=== PATIENT | male | born 1955 | race Two or more races ===

== ENCOUNTER 2021-12-21 08:59 | Outpatient (CLI) | payer OTHER ==
[~2021-12-21] VITALS: Ht 157.5 cm; Wt 78.6 kg
[2021-12-21] VITALS (16 sets, daily range): BP systolic 119–157; BP diastolic 72–97
[~2021-12-21 08:59] MED LIST: ASPI325T11 PO; ATOR40TA59 PO; CARV6.2511 PO; CLOP75TA PO; LISI5TAB15 PO; NITR0.4T24 SL; SIMV10TA15 PO
[2021-12-21 09:22] LABS: HEMATOCRIT 47.2 % (39.0-53.0); HEMOGLOBIN 15.9 g/dL (13.0-17.5); RED BLOOD COUNT 5.11 x10^6/uL (4.30-5.70); RED CELL DISTRIBUTION WIDTH 13.5 % (11.5-14.5); WHITE BLOOD COUNT 4.9 x10^3/uL (4.0-11.0)
[2021-12-21] MEDS ORDERED: METF500T16 PO (09:23)
[2021-12-21] MEDS ORDERED: TIZA-75 PO (09:23)
[2021-12-21] MEDS ORDERED: ASPI-886 PO (09:23)
[2021-12-21] MEDS ORDERED: GABA-585 PO (09:23)
[2021-12-21] MEDS ORDERED: LISI20TA18 PO (09:23)
[2021-12-21] MEDS ORDERED: LIPITOR80 MG PO (09:23)
[2021-12-21 09:31] LABS: PROTHROMBIN TIME PATIENT 12.7 SEC (11.7-14.0)
[2021-12-21] MEDS ORDERED: LIDOCAINE 1% PF 2 ML VIAL. ONE (09:34)
[2021-12-21] MEDS ORDERED: IODIXANOL 320 MG/ML 100 ML VIAL. ONE ×2 (09:34→11:09)
[2021-12-21 09:37] LABS: CALCIUM 8.4 mg/dL (8.5-10.1); CREATININE 0.9 mg/dL (0.7-1.3); GFR 84.2; POTASSIUM 4.5 mmol/L (3.5-5.1)
[2021-12-21] MEDS ORDERED: fentaNYL PF VIAL 100 MCG/2 ML VIAL ONE (10:29)
[2021-12-21] MEDS ORDERED: HEPARIN for IV BOLUS 10,000 UNIT/10 ML VIAL. ONE (10:30)
[2021-12-21] MEDS ORDERED: NITROGLYCERIN 200 MCG/2 ML SYRINGE FOR CATH/VASC LAB. ONE (10:30)
[2021-12-21] MEDS ORDERED: VERAPAMIL 5 MG/2 ML VIAL. ONE (10:30)
[2021-12-21] MEDS ORDERED: MIDAZOLAM HCL/PF 2 MG/2 ML VIAL. ONE (10:30)
[2021-12-21] MEDS ORDERED: BIVALIRUDIN 250 MG VIAL. IV ONE ×2 (10:50→11:00)
[2021-12-21] MEDS ORDERED: fentaNYL PF VIAL 100 MCG/2 ML VIAL IV ONE (11:00)
[2021-12-21] MEDS ORDERED: HEPARIN for IV BOLUS 10,000 UNIT/10 ML VIAL. IV ONE (11:00)
[2021-12-21] MEDS ORDERED: LIDOCAINE 1% PF 2 ML VIAL. INJ ONE (11:00)
[2021-12-21] MEDS ORDERED: CONTRAST GIVEN. MC PRN (11:00)
[2021-12-21] MEDS ORDERED: IODIXANOL 320 MG/ML 100 ML VIAL. IART ONE (11:00)
[2021-12-21] MEDS ORDERED: VERAPAMIL 5 MG/2 ML VIAL. IART ONE (11:00)
[2021-12-21] MEDS ORDERED: NITROGLYCERIN 200 MCG/2 ML SYRINGE FOR CATH/VASC LAB. IART ONE (11:00)
[2021-12-21] MEDS ORDERED: MIDAZOLAM HCL/PF 2 MG/2 ML VIAL. IV ONE (11:00)
[2021-12-21] MEDS ORDERED: HEPARIN for IV BOLUS 10,000 UNIT/10 ML VIAL. IART ONE (11:00)
[2021-12-21] MEDS ORDERED: CLOPIDOGREL BISULFATE 75 MG TABLET ONE (11:40)
[2021-12-21] MEDS ORDERED: ASPIRIN 325 MG TABLET ONE (11:41)
[2021-12-21] MEDS ORDERED: ASPIRIN 325 MG TABLET PO ONE (11:45)
[2021-12-21] MEDS ORDERED: CLOPIDOGREL BISULFATE 75 MG TABLET PO ONE (11:45)
--- NOTE | 2021-12-21 11:59 | PDOC ---
MODERATE SEDATION ASSESSMENT RISKS/ALTERNATIVES Risks/Alternatives Risks and alternatives of this type of sedation and procedure discussed with: RISK/ALTERNATIVES: Patient H & P ON CHART H & P H & P on chart and reviewed for co-morbid conditions and appropriate labs. H&P ON CHART: Yes STATUS PREG STATUS ASSESSED: N/A MEDS/ALLERGIES REVIEWED Meds/Allergies Reviewed Medications and Allergies including time and route of recently administered narcotics and sedatives. MEDS/ALLERGIES REVIEWED: Yes ASA RATING ASA RATING: III AIRWAY ASSESSMENT Airway Assessment Airway patency, oral function limitations, presence of caps, crowns, dentures, partials, and ability to extend neck assessed. AIRWAY ASSESSMENT: Yes MALLAMPATI SCORE MALLAMPATI SCORE: II PRE-SEDATION ASSESSMENT PRE-SEDATION ASSESSMENT: Yes TREMAYNE FOSTER MD Dec 21, 2021 11:59
[2021-12-21] MEDS ORDERED: IV 1/2 NORMAL SALINE 1,000 ML IV SCH (12:15)
--- NOTE | 2021-12-21 13:10 | CARD ---
MR#: [id number] Date of Study: 12/21/2021 Ordering Physician: TREMAYNE ESTRELLA, Referring Physician: TREMAYNE ESTRELLA, Tech: CHELSIE PAYNE APPROVED REPORT Technologist: CHELSIE PAYNE Nurse: Mila Dyson RN Procedure(s) performed: 1. Left heart catheterization, selective coronary angiography via right trans radial approach 2. Instantaneous wave free ratio (IFR) measurement of left circumflex artery and right coronary arter y stenoses. 3. Successful PCI/drug-eluting stent placement to the posterior descending branch of right coronary a rtery. MODERATE SEDATION TIME: 78 MINUTES FLUORO TIME: 28.6 MIN DOSE: [id number] CONTRAST: 140CC VISI INDICATION The indication(s) include : unstable angina . [facility] Clinical Frailty Scale [facility] Clinical Frailty Scale: Mildly Frail Heart Failure Heart Failure: No CASE TECHNIQUE IV conscious sedation was used throughout procedure with appropriate monitoring and was performed in the presence of a registered nurse who was an independent trained observer other than the physician p erforming the procedure. During this case, Fluoroscopy and low osmolar contrast were used for imaging . Specimen(s) Removed: No Estimated Blood loss: 15 cc's. PROCEDURE NARRATIVE After explaining the risks, benefits and alternative options, informed consent was obtained from chucho ent. Patient was brought to the cardiac Guidance Adviser and right wrist was prepped and draped in the usual fashion after confirming a positive modified Román's test. Arterial access was obtained in the righ t radial artery and a 6 German sheath was inserted. 6 German Ruben catheter was used to perform olu ective angiography of the left and right coronary arteries. LVEDP and transaortic gradients were ena ured. Since patient was noted to have angiographically borderline significant stenosis involving left circumflex and right coronary arteries, a decision was made to perform physiologic assessment using instantaneous wave free ratio (IFR). The left main coronary artery was engaged with a 6 German XB 3.5 guide catheter. The in-stent resteno sis in the mid segment of left circumflex artery was crossed with a BitInstantiwire pressure guidew david. iFR measurement was made the came back insignificant at 0.98. Subsequently, the right coronary a rtery was engaged with a 6 German JR4 guide catheter and the stenosis in the mid segment was crossed with the pressure guidewire. iFR measurement was made that was insignificant at 1.0. Hence no interve ntions were performed on these lesions. FINDINGS 1. Hemodynamics: Left ventricular end-diastolic pressure of 12 mmHg. No pullback gradient across th e aortic valve. 2. Coronary angiography: a. The left main coronary artery arose from the left sinus of Valsalva, gave rise to the left anteri or descending and left circumflex arteries and did not show any significant stenosis. b. The left anterior descending artery showed a widely patent stent in the mid segment. c. The left circumflex artery showed 50% in-stent restenosis in the midsegment. This was physiologic ally insignificant based on IFR measurement of 0.98. d. The right coronary artery was a large and dominant vessel arising from the right sinus of Valsalv a that showed 50% stenosis in the midsegment that was physiologically insignificant based on IFR ena urement of 1.0. The posterior descending branch showed 90% proximal segment stenosis. INTERVENTION The right coronary artery was engaged with a 6 German XB 3.5 guide catheter as stated above. The sten osis in the posterior descending branch was crossed with a 0.014 inch FoKo guidewire. This was predilated with a 2.0 x 12 mm Euphora balloon following which this was successfully treated with a 2.25 x 12 mm [employer] Promus Elite drug-eluting stent. Follow-up angiography showed resolu tion of the lesion to 0% with CHRISTIN-3 distal flow. Patient tolerated the procedure well. Hemostasis wa s achieved using TR band. There were no immediate complications. CHRISTIN Flow CHRISTIN Flow (Pre-Intervention): CHRISTIN-2 CHRISTIN Flow (Post-Intervention): CHRISTIN-3 Conclusion 1. Widely patent previously placed stent in the left anterior descending artery. 50% in-stent resteno sis in the mid segment of the left circumflex artery that was insignificant based on IFR measurement. The right coronary artery showed 50% stenosis in the midsegment there was insignificant based on IFR measurement. The posterior descending branch showed 90% proximal segment stenosis. 2. Successful PCI/drug-eluting stent placement to the posterior descending branch of right coronary a rtery. Recommendations 1. Aspirin 325 mg daily for 1 month followed by 81 mg daily 2. Plavix 75 mg daily 3. Cardiovascular risk factor modification Signed by : Tremayne Estrella, Electronically Approved : 12/21/2021 13:10:13
[2021-12-21] MEDS ORDERED: ASPI325T11 PO (13:22)
[2021-12-21] MEDS ORDERED: CLOP75TA PO (13:22)
--- NOTE | 2021-12-21 14:41 | CARD ---
MR#: [id number] Date of Study: 12/21/2021 Ordering Physician: TREMAYNE ESTRELLA, Referring Physician: Mic BAZAN: Agustin Ann [facility] APPROVED REPORT EXAM: Two-dimensional and M-mode echocardiogram with Doppler and color Doppler. Other Information Quality : FairHR: 53bpm Rhythm : NSR INDICATION Cardiac Disease: CAD 2D DIMENSIONS Left Atrium(2D)3.5 (1.6-4.0cm)IVSd0.9 (0.7-1.1cm) Aortic Root(2D)3.3 (2.0-3.7cm)LVDd4.5 (3.9-5.9cm) LVOT Diameter1.9 (1.8-2.4cm)PWd0.9 (0.7-1.1cm) LA Jkehry91 (18-58mL)LVDs2.8 (2.5-4.0cm) FS (%) 37.5 %SV62.1 ml LVEF(%)67.7 (>50%) Aortic Valve AoV Peak Andrez.141.6cm/sAoV VTI32.1cm AO Peak GR.8.0mmHgLVOT VTI 15.34cm AO Mean GR.4mmHg Mitral Valve MV E Aigzmcae56.7cm/sMV E Peak Gr.4mmHg MV DECEL [id number] A Loebgrkg55.6cm/s MV E Mean Gr.1mmHgE/A Ratio0.9 TDI Lateral E' P. V6.37cm/sMedial E' P. V4.38cm/s E/Lateral E'10.2E/Medial E'14.8 Tricuspid Valve TR P. Zyknaujv248ar/sTR Peak Gr.18mmHg Pulmonary Vein S1 Vbsgyclp59.2cm/sS2 Echqgpfq94.54cm/s D2 Duebmhyu51.5cm/s LEFT VENTRICLE The left ventricle is normal size. There is normal left ventricular wall thickness. The left ventricu lar systolic function is normal. The ejection fraction is 60%. There is normal LV segmental wall jennifer on. Transmitral Doppler flow pattern is Grade I-abnormal relaxation pattern. No left ventricle thromb us noted on this study. There is no ventricular septal defect visualized. There is no left ventricula r aneurysm. There is no mass noted in the left ventricle. RIGHT VENTRICLE The right ventricle is normal size. There is normal right ventricular wall thickness. The right ventr icular systolic function is normal. ATRIA The left atrium size is normal. The right atrium is borderline dilated. The interatrial septum is int act with no evidence for an atrial septal defect or patent foramen ovale as noted on 2-D or Doppler i maging. AORTIC VALVE The aortic valve is not well seen. Doppler and Color Flow revealed no significant aortic regurgitatio n. There is no significant aortic valvular stenosis. There is no aortic valvular vegetation. MITRAL VALVE The mitral valve is mildly thickened. There is no evidence of mitral valve prolapse. There is no mitr al valve stenosis. Doppler and Color-flow revealed mild mitral regurgitation. TRICUSPID VALVE The tricuspid valve is normal in structure and function. Doppler and Color Flow revealed trace tricus pid regurgitation. The PA pressure was estimated at 25 mmHg. There is no tricuspid valve prolapse or vegetation. There is no tricuspid valve stenosis. PULMONIC VALVE The pulmonary valve is normal in structure and function. Doppler and Color Flow revealed no pulmonic valvular regurgitation. There is no pulmonic valvular stenosis. GREAT VESSELS The aortic root is normal in size. The ascending aorta is normal in size. The pulmonary artery is nor mal. The IVC is normal in size and collapses >50% with inspiration. PERICARDIAL EFFUSION There is no pleural effusion. There is no evidence of significant pericardial effusion. Critical Notification Critical Value: No <Conclusion> The left ventricular systolic function is normal. The ejection fraction is 60%. There is normal LV segmental wall motion. Transmitral Doppler flow pattern is Grade I-abnormal relaxation pattern. Mild mitral regurgitation. Trace tricuspid regurgitation. The PA pressure was estimated at 25 mmHg. There is no evidence of significant pericardial effusion. Signed by : Tremayne Estrella, Electronically Approved : 12/21/2021 14:40:56
--- NOTE | 2021-12-21 16:15 | NUR ---
Discharge Note: JHONY ARENAS Discharge instructions and discharge home medications reviewed with [place] speaking Family Member and a copy given. All questions have been answered and understanding verbalized. Radial site remains clean and dry The following instructions and handouts were given: radial site care, sedation Discontinued lines and drains: Peripheral IV intact. Patient discharged to Home or Self Care withmily Zuleyma Wheelchair RUSSELL RN
== END 2021-12-21 16:15 | disposition home or self-care (01) ==
LOC: CCL 08:59
PROVIDERS: ATTEND Internal Medicine Cardiovascular Disease
DX: I25.110 Atherosclerotic heart disease of native coronary artery with unstable angina pectoris (principal); I10 Essential (primary) hypertension; E78.00 Pure hypercholesterolemia, unspecified; E11.9 Type 2 diabetes mellitus without complications; M19.90 Unspecified osteoarthritis, unspecified site; Z87.891 Personal history of nicotine dependence; Z79.82 Long term (current) use of aspirin; Z79.84 Long term (current) use of oral hypoglycemic drugs; Z79.899 Other long term (current) drug therapy; Z98.890 Other specified postprocedural states
CPT/HCPCS: 36415; 80048; 85027; 85610; 92928; 93306; 93458; 93571; 93572; 99152; 99153; C1725; C1769; C1874; C1887; C1894; J0583; J1644; J2250; J3010; J3490; Q9967; C8929; C9600